=== PATIENT | female | born 1955 | race Caucasian/White ===

== ENCOUNTER 2018-12-03 05:34 | Inpatient (IN) ==
[2018-12-03] MEDS ORDERED: VANCOMYCIN 1,000 MG VIAL ONE (05:58)
[2018-12-03] MEDS ORDERED: ceFAZolin 1,000 MG VIAL ONE (05:58)
[2018-12-03] MEDS ORDERED: ceFAZolin 1,000 MG in SYRINGE 1 EACH IV ONE (06:00)
[2018-12-03] MEDS ORDERED: VANCOMYCIN INJ 1,000 MG in SODIUM CHLORIDE 0.9% 250 ML IV ONE (06:00)
[2018-12-03] MEDS ORDERED: ROPIVACAINE 0.5% 30 ML VIAL ONE (06:28)
[2018-12-03] MEDS ORDERED: BUPIVACAINE SPINAL 0.75% 2 ML AMP SPINAL ONE ×2 (06:28→08:54)
[2018-12-03] MEDS ORDERED: FAMOTIDINE 20 MG TABLET PO ONE (06:30)
[2018-12-03] MEDS: LACTATED RINGERS 1,000 ML IV SCH ×2 (06:35→20:36)
[2018-12-03] MEDS ORDERED: FAMOTIDINE 20 MG TABLET ONE (06:40)
[2018-12-03] MEDS ORDERED: fentaNYL 100 MCG/2 ML VIAL ONE (08:54)
[2018-12-03] MEDS ORDERED: MIDAZOLAM 2 MG/2 ML VIAL ONE (08:54)
[2018-12-03] MEDS ORDERED: TRANEXAMIC ACID 1,000 MG/10 ML VIAL ONE (08:54)
[2018-12-03] MEDS ORDERED: ONDANSETRON 4 MG/2 ML VIAL ONE (08:54)
[2018-12-03] MEDS ORDERED: PHENYLEPHRINE 1 MG/10 ML SYRINGE IV ONE (08:55)
[2018-12-03] MEDS ORDERED: SODIUM CHLORIDE 0.9% 100 ML IV ONE (08:55)
[2018-12-03] MEDS ORDERED: PROPOFOL 500 MG/50 ML BOTTLE IV ONE (08:55)
[2018-12-03] MEDS ORDERED: ACETAMINOPHEN 1,000 MG/100 ML VIAL IV ONE (08:55)
[2018-12-03] MEDS ORDERED: LACTATED RINGERS 1,000 ML IV ONE (08:55)
[2018-12-03] MEDS ORDERED: PROPOFOL 200 MG/20 ML VIAL IV ONE (08:55)
[2018-12-03] MEDS ORDERED: BISACODYL 10 MG SUPP RECTAL PRN (08:58)
[2018-12-03] MEDS ORDERED: NALOXONE 0.4 MG/ML VIAL IV PRN (08:58)
[2018-12-03] MEDS ORDERED: MAGNESIUM HYDROXIDE SUSP 30 ML UDCUP PO PRN (08:58)
[2018-12-03] MEDS ORDERED: LACTULOSE 20 GM/30 ML UDCUP PO PRN (08:58)
[2018-12-03] MEDS ORDERED: diphenhydrAMINE CAP 25 MG CAPSULE PO PRN (08:58)
[2018-12-03] MEDS ORDERED: PROMETHAZINE 25 MG/1 ML VIAL IM PRN (08:58)
[2018-12-03] MEDS ORDERED: ONDANSETRON 4 MG/2 ML VIAL IV PRN ×2 (08:58→09:05)
[2018-12-03] MEDS ORDERED: IBUPROFEN 200 MG TABLET PO PRN (09:01)
[2018-12-03] MEDS ORDERED: ACETAMINOPHEN 500 MG TABLET PO PRN (09:01)
[2018-12-03] MEDS ORDERED: LORATADINE 10 MG TABLET PO PRN (09:01)
[2018-12-03] MEDS ORDERED: HYDROmorphone 2 MG/1 ML VIAL IV PRN (09:05)
[2018-12-03] MEDS ORDERED: OMEGA 3 ACID ETHYL ESTERS 1 GM CAPSULE PO SCH (09:30)
[2018-12-03] MEDS ORDERED: LACTATED RINGERS 1,000 ML IV SCH (09:30)
[2018-12-03] MEDS: DOCUSATE SODIUM 100 MG CAPSULE PO SCH ×3 (10:38→22:32)
[2018-12-03] MEDS: MORPHINE PCA 30 MG/30 ML SYRINGE IV SCH (10:38)
[2018-12-03] MEDS: MORPHINE 4 MG/1 ML VIAL IV PRN ×3 (14:09→21:40)
[2018-12-03] MEDS: ceFAZolin 2,000 MG in PREMIX 1 EACH IV SCH ×2 (15:49→23:20)
[2018-12-03] MEDS: QUINAPRIL 20 MG TABLET PO SCH (20:32)
[2018-12-03] MEDS: FONDAPARINUX 2.5 MG/0.5 ML SYRINGE SUBCUT SCH (20:32)
[2018-12-03] MEDS: PSYLLIUM POWDER 3.7 GM/PACK PO SCH (22:32)
[2018-12-04] MEDS: MORPHINE 4 MG/1 ML VIAL IV PRN ×6 (00:40→21:40)
[2018-12-04 05:44] LABS: Basophils % 0.2 % (0.0-0.8); Eosinophils % 0.3 % (0.00-10.9); Hemoglobin 11.9 GM/DL (12.0-16.0); Immature Granulocytes % 0.7 %; Immature Granulocytes Absolute 0.07 #; Lymphocytes # 1.4 10*3/uL (1.4-4.0); Lymphocytes % 13.1 % (21.3-54.2); Mean Corpuscular HGB Conc 32.2 GM/DL (32-36); Mean Corpuscular Hemoglobin 29 PG (27-34); Mean Corpuscular Volume 89.6 FL (87-102); Mean Platelet Volume 9.6 FL (9.6-12.0); Monocytes # 0.9 10*3/uL (0.11-0.8); Neutrophils # 8.1 10*3/uL (1.4-7.4); Neutrophils % 76.7 % (38.7-73.9); Platelet Count 127 T/CUMM (130-400); Red Blood Count 4.13 MC/CUMM (3.8-5.5); Red Cell Distribution Width 12.6 % (9.3-17.3); White Blood Count 10.5 T/CUMM (4-12)
[2018-12-04 06:03] LABS: Calcium 8.7 MG/DL (8.5-10.1); Osmolality,Calculated 277.7 MOS/KG (273-304); Potassium 4.6 MMOL/L (3.5-5.1)
[2018-12-04] MEDS: MAGNESIUM OXIDE 400 MG TABLET PO SCH (08:17)
[2018-12-04] MEDS: LACTOBACILLUS ACIDOPHILUS/BULGARICUS CAPLET PO SCH (08:18)
[2018-12-04] MEDS: ASPIRIN EC 81 MG TABLET PO SCH (08:18)
[2018-12-04] MEDS: MULTIVITAMIN (CENTRUM) TABLET PO SCH (08:18)
[2018-12-04] MEDS: CHOLECALCIFEROL 1,000 UNIT TABLET PO SCH (08:18)
[2018-12-04] MEDS: CALCIUM (CITRATE)/VITAMIN D 200 MG-125 UNIT TABLET PO SCH (08:18)
[2018-12-04] MEDS: PSYLLIUM POWDER 3.7 GM/PACK PO SCH ×2 (08:19→21:39)
[2018-12-04] MEDS: DOCUSATE SODIUM 100 MG CAPSULE PO SCH ×3 (08:19→21:39)
[2018-12-04] MEDS: MORPHINE PCA 30 MG/30 ML SYRINGE IV SCH (10:43)
[2018-12-04] MEDS: LACTATED RINGERS 1,000 ML IV SCH (15:43)
[2018-12-04] MEDS: QUINAPRIL 20 MG TABLET PO SCH (21:37)
[2018-12-04] MEDS: FONDAPARINUX 2.5 MG/0.5 ML SYRINGE SUBCUT SCH (21:37)
[2018-12-04] MEDS: TEMAZEPAM 7.5 MG CAPSULE PO PRN (21:39)
[2018-12-05] MEDS: LACTATED RINGERS 1,000 ML IV SCH (03:05)
[2018-12-05] MEDS ORDERED: ATORVASTATIN 10 MG TABLET PO SCH (09:00)
[2018-12-05] MEDS: CALCIUM (CITRATE)/VITAMIN D 200 MG-125 UNIT TABLET PO SCH (09:23)
[2018-12-05] MEDS: MAGNESIUM OXIDE 400 MG TABLET PO SCH (09:23)
[2018-12-05] MEDS: LACTOBACILLUS ACIDOPHILUS/BULGARICUS CAPLET PO SCH (09:23)
[2018-12-05] MEDS: CHOLECALCIFEROL 1,000 UNIT TABLET PO SCH (09:23)
[2018-12-05] MEDS: ASPIRIN EC 81 MG TABLET PO SCH (09:23)
[2018-12-05] MEDS: DOCUSATE SODIUM 100 MG CAPSULE PO SCH ×3 (09:23→20:54)
[2018-12-05] MEDS: MULTIVITAMIN (CENTRUM) TABLET PO SCH (09:24)
[2018-12-05] MEDS: MORPHINE PCA 30 MG/30 ML SYRINGE IV SCH (09:24)
[2018-12-05] MEDS: PSYLLIUM POWDER 3.7 GM/PACK PO SCH ×2 (09:24→20:56)
[2018-12-05] MEDS: FONDAPARINUX 2.5 MG/0.5 ML SYRINGE SUBCUT SCH (20:54)
[2018-12-05] MEDS: QUINAPRIL 20 MG TABLET PO SCH (20:55)
[2018-12-05] MEDS: TEMAZEPAM 7.5 MG CAPSULE PO PRN (20:55)
[2018-12-06] MEDS: LACTATED RINGERS 1,000 ML IV SCH (02:35)
[2018-12-06] MEDS: MAGNESIUM OXIDE 400 MG TABLET PO SCH (08:52)
[2018-12-06] MEDS: PSYLLIUM POWDER 3.7 GM/PACK PO SCH (08:52)
[2018-12-06] MEDS: DOCUSATE SODIUM 100 MG CAPSULE PO SCH (08:54)
[2018-12-06] MEDS: LACTOBACILLUS ACIDOPHILUS/BULGARICUS CAPLET PO SCH (08:54)
[2018-12-06] MEDS: MULTIVITAMIN (CENTRUM) TABLET PO SCH (08:54)
[2018-12-06] MEDS: CALCIUM (CITRATE)/VITAMIN D 200 MG-125 UNIT TABLET PO SCH (08:54)
[2018-12-06] MEDS: ASPIRIN EC 81 MG TABLET PO SCH (08:54)
[2018-12-06] MEDS: MORPHINE PCA 30 MG/30 ML SYRINGE IV SCH (08:54)
[2018-12-06] MEDS: CHOLECALCIFEROL 1,000 UNIT TABLET PO SCH (08:54)
[2018-12-06 16:15] VITALS: BP 129/79
== END 2018-12-06 16:25 | disposition home or self-care (01) | DRG 470 ==
LOC: N.OR 05:34 → N.SDSINP 05:38 → N.3E 08:58
PROVIDERS: ADMIT Orthopaedic Surgery; ATTEND Orthopaedic Surgery

== ENCOUNTER 2020-09-08 05:47 | Inpatient (IN) ==
[~2020-09-08 05:47] MED LIST: VANCOMYCIN INJ 1,000 MG in SODIUM CHLORIDE 0.9% 250 ML IV ONE
[2020-09-08] MEDS ORDERED: ceFAZolin 1,000 MG VIAL ONE (05:53)
[2020-09-08] MEDS ORDERED: LACTATED RINGERS 1,000 ML IV SCH (06:00)
[2020-09-08] MEDS ORDERED: ROPIVACAINE 0.5% 30 ML VIAL ONE (06:35)
[2020-09-08] MEDS ORDERED: LIDOCAINE 1% 5 ML VIAL ONE (06:35)
[2020-09-08] MEDS ORDERED: DEXMEDETOMIDINE 200 MCG/2 ML VIAL ONE (06:36)
[2020-09-08] MEDS ORDERED: DEXAMETHASONE 4 MG/1 ML VIAL ONE (06:36)
[2020-09-08] MEDS ORDERED: MAGNESIUM HYDROXIDE SUSP 30 ML UDCUP PO PRN (07:23)
[2020-09-08] MEDS ORDERED: diphenhydrAMINE CAP 25 MG CAPSULE PO PRN ×2 (07:23→07:26)
[2020-09-08] MEDS ORDERED: PROMETHAZINE 25 MG/1 ML VIAL IM PRN (07:23)
[2020-09-08] MEDS ORDERED: ACETAMINOPHEN 325 MG TABLET PO PRN (07:26)
[2020-09-08] MEDS ORDERED: propofoL 200 MG/20 ML VIAL IV ONE (09:22)
[2020-09-08] MEDS ORDERED: MIDAZOLAM 2 MG/2 ML VIAL ONE (09:22)
[2020-09-08] MEDS ORDERED: LIDOCAINE 2% 5 ML VIAL ONE (09:22)
[2020-09-08] MEDS ORDERED: ONDANSETRON 4 MG/2 ML VIAL ONE (09:23)
[2020-09-08] MEDS ORDERED: ROCURONIUM 100 MG/10 ML VIAL IV ONE (09:23)
[2020-09-08] MEDS ORDERED: NEOSTIGMINE 10 MG/10 ML VIAL ONE (09:23)
[2020-09-08] MEDS ORDERED: GLYCOPYRROLATE 0.4 MG/2 ML VIAL ONE (09:23)
[2020-09-08] MEDS ORDERED: PHENYLEPHRINE 1 MG/10 ML SYRINGE IV ONE (09:23)
[2020-09-08] MEDS: CHOLECALCIFEROL 1,000 UNIT TABLET PO SCH (12:12)
[2020-09-08] MEDS: MAGNESIUM OXIDE 400 MG TABLET PO SCH (12:13)
[2020-09-08] MEDS: ASPIRIN EC 81 MG TABLET PO SCH (12:13)
[2020-09-08] MEDS: MULTIVITAMIN (CENTRUM) TABLET PO SCH (12:13)
[2020-09-08] MEDS ORDERED: GLUCAGON 1 MG VIAL IM PRN (13:58)
[2020-09-08] MEDS ORDERED: DEXTROSE 50% 25 GM/50 ML VIAL IV PRN (13:58)
[2020-09-08] MEDS ORDERED: hydrALAZINE 20 MG/1 ML VIAL IV PRN (14:58)
[2020-09-08] MEDS: ceFAZolin 2,000 MG in PREMIX 1 EACH IV SCH (18:47)
[2020-09-08] MEDS: INSULIN LISPRO 100 UNIT/ML SUBCUT SCH ×2 (18:48→23:17)
[2020-09-08] MEDS ORDERED: ATORVASTATIN 20 MG TABLET PO SCH (21:00)
[2020-09-08] MEDS ORDERED: PSYLLIUM POWDER 3.7 GM/PACK PO SCH (21:00)
[2020-09-08] MEDS ORDERED: PROPRANOLOL 20 MG TABLET PO SCH (21:00)
[2020-09-08] MEDS ORDERED: ENALAPRIL 10 MG TABLET PO SCH (21:00)
[2020-09-08] MEDS ORDERED: DOCUSATE SODIUM 100 MG CAPSULE PO SCH (21:00)
[2020-09-08] MEDS: clonazePAM 0.5 MG TABLET PO SCH (21:15)
[2020-09-09] MEDS ORDERED: ceFAZolin 2,000 MG in PREMIX 1 EACH IV SCH (03:00)
[2020-09-09] MEDS: ceFAZolin 2,000 MG in PREMIX 1 EACH IV SCH (03:01)
[2020-09-09 06:04] LABS: Basophils % 0.1 % (0.0-0.8); Eosinophils % 0.4 % (0.00-10.9); Hematocrit 33.8 VOL% (35.7-47.0); Hemoglobin 11.3 GM/DL (12.0-16.0); Immature Granulocytes % 0.4 %; Immature Granulocytes Absolute 0.03 #; Lymphocytes # 1.3 10*3/uL (1.4-4.0); Lymphocytes % 18.7 % (21.3-54.2); Mean Corpuscular HGB Conc 33.4 GM/DL (32-36); Mean Corpuscular Volume 90.1 FL (87-102); Mean Platelet Volume 9.4 FL (9.6-12.0); Monocytes % 12.3 % (1.7-12.7); Neutrophils % 68.1 % (38.7-73.9); Platelet Count 150 T/CUMM (130-400); Red Blood Count 3.75 MC/CUMM (3.8-5.5); White Blood Count 7.2 T/CUMM (4-12)
[2020-09-09 06:23] LABS: Calcium 8.5 MG/DL (8.5-10.1); Osmolality,Calculated 284.1 MOS/KG (273-304)
[2020-09-09] MEDS: MORPHINE 4 MG/1 ML VIAL IV PRN ×2 (07:54→13:16)
[2020-09-09] MEDS: ONDANSETRON 4 MG/2 ML VIAL IV PRN ×2 (07:55→13:16)
[2020-09-09] MEDS: clonazePAM 0.5 MG TABLET PO SCH (08:56)
[2020-09-09] MEDS: ASPIRIN EC 81 MG TABLET PO SCH (08:57)
[2020-09-09] MEDS: CHOLECALCIFEROL 1,000 UNIT TABLET PO SCH (09:00)
[2020-09-09] MEDS: MAGNESIUM OXIDE 400 MG TABLET PO SCH (09:00)
[2020-09-09] MEDS ORDERED: OMEGA 3 ACID ETHYL ESTERS 1 GM CAPSULE PO SCH (09:00)
[2020-09-09] MEDS: MULTIVITAMIN (CENTRUM) TABLET PO SCH (09:00)
[2020-09-09] MEDS ORDERED: CALCIUM (CITRATE)/VITAMIN D 200 MG-125 UNIT TABLET PO SCH (09:00)
[2020-09-09] MEDS ORDERED: LACTOBACILLUS ACIDOPHILUS/BULGARICUS 1 PACKET PO SCH (09:00)
[2020-09-09] MEDS: INSULIN LISPRO 100 UNIT/ML SUBCUT SCH ×2 (09:03→12:26)
[2020-09-09 11:39] VITALS: BP 122/62
== END 2020-09-09 15:22 | disposition home health service (06) | DRG 483 ==
LOC: N.OR 05:47 → N.SDSINP 05:48 → N.3E 09:29 → EDSTATUS 10:00
PROVIDERS: ADMIT Orthopaedic Surgery; ATTEND Orthopaedic Surgery